=== PATIENT | male | born 1960 | race Caucasian/White ===

== ENCOUNTER 2024-05-02 12:02 | Oncology outpatient (recurring) (ONCR) | payer BC, SELFPAY ==
[2024-05-02 14:06] LABS: Reticulocyte % 1.8 % (0.5-2.0)
[2024-05-02 14:07] LABS: Hematocrit 34.2 % (37-53); Mean Corpuscular HGB Conc 32.2 g/dL (30-55); Mean Corpuscular Hemoglobin 27.8 pg (27-33); Mean Corpuscular Volume 86.4 fl (82-101); Mean Platelet Volume 7.9 fL (7.4-10.4); Platelet Count 210 10^3/cmm (157-399); Red Blood Count 3.96 10^6/uL (3.85-5.65); Red Cell Distribution Width 16.7 % (12.1-15.1); White Blood Count 2.13 10^3/uL (3.29-11.43)
[2024-05-02 14:11] LABS: Erythrocyte Sedimentation Rate 14 mm/hr (0-10); LAB Peripheral Smear Sent for Review
[2024-05-02 14:24] LABS: Slide Review Slide Review Perform
[2024-05-02 14:29] LABS: Absolute Segmented Neutrophil 0.6 10/cmm (1.6-7.1); Eosinophils 1 %; Lymphocytes 58 %; Lymphocytes Absolute 1.3 10^3/cmm (1.2-3.4); Monocytes Absolute 0.2 10^3/cmm (0.1-0.6); Platelet Estimate Normal (Normal); Segmented Neutrophils 26 %; Total Cells Counted 100 (0-100)
[2024-05-02 14:31] LABS: Absolute Neutrophil 0.6 10^3/cmm (1.4-6.5)
[2024-05-02 14:32] LABS: Alanine Aminotransferase 17 U/L (0-41); Albumin Level 3.7 g/dL (3.5-5.2); Alkaline Phosphatase 117 U/L (40-130); Anion Gap 13.1 (5-19); Aspartate Amino Transferase 22 U/L (0-40); Blood Urea Nitrogen 14 mg/dL (8-23); C Reactive Protein 28.7 mg/L (0.0-4.9); Calcium 8.6 mg/dL (8.5-10.5); Carbon Dioxide 27 mmol/L (22-29); Chloride 98 mmol/L (98-107); Creatinine Clr Calc Pharmacy 146.0637; Globulin 3.3 g/dL (1.3-4.6); Glucose 107 mg/dL (65-115); Lactate Dehydrogenase 138 U/L (135-225); Osmolality Calculated 279 mOsm/kg (285-295); Potassium 4.1 mmol/L (3.5-5.1); Sodium 134 mmol/L (136-145); Total Bilirubin 1.2 mg/dL (0.15-1.2)
[2024-05-02 14:38] LABS: Testosterone Total 787.7 ng/dL (193-740)
[2024-05-02 14:50] LABS: Ferritin 222 ng/mL (30-400); Folate Level 18.6 ng/mL (4.5-32.2); Iron 98 ug/dL (59-158); Percent Saturation 44.5 % (20-50); Total Iron Binding Capacity 220 mcg/dl; Unsaturated Iron Binding 122 ug/dL (112-347)
[2024-05-02 15:06] LABS: Vitamin B12 1733 pg/mL (232-1245)
[2024-05-04 03:09] LABS: PROTEIN, TOTAL 6.6 g/dL (6.1-8.1)
[2024-05-04 08:51] LABS: ALBUMIN 3.4 g/dL (3.8-4.8); ALPHA 1 GLOBULIN 0.4 g/dL (0.2-0.3); ALPHA 2 GLOBULIN 0.8 g/dL (0.5-0.9); BETA 1 GLOBULIN 0.3 g/dL (0.4-0.6); BETA 2 GLOBULIN 0.4 g/dL (0.2-0.5); GAMMA GLOBULIN 1.3 g/dL (0.8-1.7)
[2024-05-04 11:44] LABS: Copper Level 143 mcg/dL (70-175)
[2024-05-06 19:29] LABS: Immunofixation Serum Normal pattern.
[2024-05-09 15:34] LABS: Soluble Transferrin Receptor 1.95 mg/L (0.76-1.76)
== END 2024-05-14 23:59 | disposition home or self-care (01) ==
PROVIDERS: Family Provider Internal Medicine; PCP Family Medicine; Visit Provider Internal Medicine Medical Oncology
DX: D64.9 Anemia, unspecified (principal); R53.83 Other fatigue; N40.0 Benign prostatic hyperplasia without lower urinary tract symptoms
CPT/HCPCS: 36415; 80053; 82525; 82607; 82728; 82746; 83540; 83550; 83615; 84153; 84155; 84165; 84238; 84403; 85007; 85025; 85045; 85651; 86140; 86334

== ENCOUNTER 2024-06-30 09:12 | Oncology outpatient (recurring) (ONCR) | payer BC, SELFPAY ==
[2024-06-30 09:49] LABS: Basophils % 1.3 %; Eosinophils # 0.1 10^3/uL (0.0-0.8); Eosinophils % 2.2 %; Hematocrit 33.6 % (37-53); Lymphocytes # 1.3 10^3/uL (0.8-4.8); Lymphocytes % 56.4 %; Mean Corpuscular HGB Conc 31.8 g/dL (30-55); Mean Corpuscular Hemoglobin 27.8 pg (27-33); Mean Corpuscular Volume 87.3 fl (82-101); Monocytes # 0.3 10^3/uL (0.2-0.9); Monocytes % 14.7 %; Neutrophils % 23.6 %; Nucleated Red Blood Cells % 0 %; Platelet Count 227 10^3/cmm (157-399); Red Blood Count 3.85 10^6/uL (3.85-5.65); Red Cell Distribution Width 16.5 % (12.1-15.1); White Blood Count 2.25 10^3/uL (3.29-11.43)
[2024-06-30 10:06] LABS: Alanine Aminotransferase 23 U/L (0-41); Albumin Level 3.6 g/dL (3.5-5.2); Alkaline Phosphatase 113 U/L (40-130); Anion Gap 11.1 (5-19); Aspartate Amino Transferase 31 U/L (0-40); Blood Urea Nitrogen 10 mg/dL (8-23); Calcium 8.7 mg/dL (8.5-10.5); Carbon Dioxide 31 mmol/L (22-29); Chloride 96 mmol/L (98-107); Creatinine Clr Calc Pharmacy 176.0726; Globulin 3.5 g/dL (1.3-4.6); Glucose 111 mg/dL (65-115); Lactate Dehydrogenase 151 U/L (135-225); Osmolality Calculated 278 mOsm/kg (285-295); Potassium 4.1 mmol/L (3.5-5.1); Sodium 134 mmol/L (136-145); Total Bilirubin 0.9 mg/dL (0.15-1.2); Total Protein 7.1 g/dL (6.6-8.7)
[2024-06-30 10:22] LABS: Neutrophils # 0.53 10^3/uL (1.8-7.7)
[2024-06-30 10:25] LABS: Slide Review Slide Review Perform
[2024-06-30 11:12] LABS: LAB Peripheral Smear Sent for Review
== END 2024-07-14 23:59 | disposition home or self-care (01) ==
PROVIDERS: Family Provider Internal Medicine; PCP Family Medicine; Visit Provider Internal Medicine Medical Oncology
DX: D64.9 Anemia, unspecified (principal); D70.9 Neutropenia, unspecified
CPT/HCPCS: 36415; 80053; 80503; 83615; 85025

== ENCOUNTER 2024-08-01 12:08 | Oncology outpatient (recurring) (ONCR) | payer BC, SELFPAY ==
[2024-08-01 12:48] LABS: Basophils % 0.9 %; Eosinophils # 0.1 10^3/uL (0.0-0.8); Eosinophils % 2.3 %; Lymphocytes # 1.4 10^3/uL (0.8-4.8); Lymphocytes % 41.8 %; Mean Corpuscular HGB Conc 32.7 g/dL (30-55); Mean Corpuscular Hemoglobin 27.9 pg (27-33); Mean Corpuscular Volume 85.3 fl (82-101); Mean Platelet Volume 7.7 fL (7.4-10.4); Monocytes # 0.4 10^3/uL (0.2-0.9); Monocytes % 12.3 %; Neutrophils # 1.33 10^3/uL (1.8-7.7); Neutrophils % 38.9 %; Nucleated Red Blood Cells % 0 %; Platelet Count 266 10^3/cmm (157-399); Red Blood Count 3.87 10^6/uL (3.85-5.65); Red Cell Distribution Width 16.1 % (12.1-15.1); White Blood Count 3.42 10^3/uL (3.29-11.43)
[2024-08-01 12:52] LABS: Reticulocyte % 2.3 % (0.5-2.0)
[2024-08-01 13:08] LABS: Alanine Aminotransferase 16 U/L (0-41); Albumin Level 3.7 g/dL (3.5-5.2); Alkaline Phosphatase 100 U/L (40-130); Anion Gap 12.7 (5-19); Aspartate Amino Transferase 23 U/L (0-40); Blood Urea Nitrogen 9 mg/dL (8-23); Calcium 9.2 mg/dL (8.5-10.5); Carbon Dioxide 29 mmol/L (22-29); Chloride 95 mmol/L (98-107); Creatinine Clr Calc Pharmacy 174.8788; Ferritin 188 ng/mL (30-400); Globulin 3.8 g/dL (1.3-4.6); Glucose 145 mg/dL (65-115); Iron 53 ug/dL (59-158); Osmolality Calculated 275 mOsm/kg (285-295); Percent Saturation 23.7 % (20-50); Potassium 4.7 mmol/L (3.5-5.1); Sodium 132 mmol/L (136-145); Total Bilirubin 0.8 mg/dL (0.15-1.2); Total Iron Binding Capacity 223 mcg/dl; Total Protein 7.5 g/dL (6.6-8.7); Unsaturated Iron Binding 170 ug/dL (112-347)
[2024-08-01 13:23] LABS: Vitamin B12 1555 pg/mL (232-1245)
[2024-08-01 14:30] LABS: Folate Level > 20.0 ng/mL (4.5-32.2)
[2024-08-08 13:43] LABS: Soluble Transferrin Receptor 2.23 mg/L (0.76-1.76)
== END 2024-08-13 23:59 | disposition home or self-care (01) ==
PROVIDERS: Internal Medicine Hematology & Oncology; Family Provider Internal Medicine; PCP Family Medicine; Visit Provider Internal Medicine Medical Oncology
DX: D64.9 Anemia, unspecified; D70.9 Neutropenia, unspecified
CPT/HCPCS: 36415; 80053; 82607; 82728; 82746; 83540; 83550; 84238; 85025; 85045